=== PATIENT | female | born 1940 | race Caucasian/White ===

== ENCOUNTER 2020-12-07 17:35 | Inpatient (IN) | payer MEDICARE, OTHER ==
[~2020-12-07] VITALS: Ht 162.6 cm; Wt 68.5 kg
[2020-12-07 20:30] LABS: SARS-Cov-2 (COVID-19) PCR, MMC POSITIVE (NEGATIVE)
[2020-12-07 21:00] LABS: Magnesium, Blood 2.2 mg/dL (1.6-2.4); Phosphorus, Blood 2.7 mg/dL (2.5-4.9); Uric Acid, Blood 6.1 mg/dL (2.6-6.0)
[2020-12-07] MEDS ORDERED: ASPI325 PO (21:03)
[2020-12-07] MEDS ORDERED: LISI20 PO (21:04)
[2020-12-07] MEDS ORDERED: POTCHL20ER PO (21:04)
[2020-12-07] MEDS ORDERED: CEFD300 PO (21:08)
[2020-12-07] MEDS ORDERED: AMLO10 PO (21:09)
[2020-12-07] MEDS ORDERED: SERT100 PO (21:10)
[2020-12-07] MEDS ORDERED: ATOR20 PO (21:10)
[2020-12-07] MEDS ORDERED: HYDSUL200 PO (21:10)
[2020-12-07] MEDS ORDERED: MERIBIN5 MG PO (21:11)
[2020-12-07] MEDS ORDERED: FURO40 PO (21:12)
[2020-12-07] MEDS ORDERED: ALLO300 PO (21:12)
[2020-12-07] MEDS ORDERED: ONDA4ODT MM (21:13)
[2020-12-08 01:08] LABS: Source, Urine Clean Catch
[2020-12-08 01:11] LABS: Bilirubin, Urine Neg (Neg); Blood, Urine 1+ (Neg); Glucose Qualitative, Urine Neg (Neg); Ketones, Urine Neg (Neg); Leukocyte Esterase, Urine Neg (Neg); Nitrite, Urine Neg (Neg); Protein, Urine 2+ (Neg); Specific Gravity, Urine 1.015 (1.003-1.022); Urobilinogen, Urine NORM (Normal)
[2020-12-08 01:31] LABS: Appearance, Urine Clear (Clear); Bacteria Not Seen /hpf; Color, Urine Yellow (P-Yellow); Red Blood Cells, Urine 0-2 /hpf (0-2); Squamous Epithelial Cells Not Seen /hpf (Few); White Blood Cells, Urine Not Seen /hpf (0-5)
[2020-12-08 04:44] LABS: BASOPHILS PERCENT AUTO 0 % (0-2); EOSINOPHILS PERCENT AUTO 0 % (0-6); Hematocrit 30.9 % (33.0-51.0); IMMATURE GRAN ABSOLUTE AUTO 0.02 K/mm3 (0.00-0.10); IMMATURE GRAN PERCENT AUTO 1 % (0-1); LYMPHOCYTES ABSOLUTE AUTO 0.57 K/mm3 (0.84-5.20); LYMPHOCYTES PERCENT AUTO 19 % (21-46); MONOCYTES ABSOLUTE AUTO 0.11 K/mm3 (0.16-1.47); MONOCYTES PERCENT AUTO 4 % (4-13); Mean Corpuscular HGB 28.3 pg (26.0-34.0); Mean Corpuscular HGB Conc 32.4 g/dL (31.5-36.5); Mean Corpuscular Volume 88 fL (80-100); Mean Platelet Volume 10.8 fL (9.1-12.4); NEUTROPHILS ABSOLUTE AUTO 2.29 K/mm3 (1.96-9.15); NEUTROPHILS PERCENT AUTO 77 % (41-73); Platelet Count 133 K/mm3 (150-400); RDW Coefficient Variation 12.9 % (11.7-14.2); RDW Standard Deviation 41.4 fL (35.1-46.3); Red Blood Cell Count 3.53 M/mm3 (3.80-5.20); White Blood Cell Count 2.99 K/mm3 (4.00-11.30)
--- NOTE | 2020-12-08 04:51 | NUR ---
SUMMARY PT ARRIVED TO FLOOR IN NO DISTRESS. PT DENIES CX PAIN OR SOB. PT REPORTED FEELING TIRED AND WANTED TO SLEEP. PT VERY HARD OF HEARING. PT HAS SLEPT T/O REST OF SHIFT. PT CURRENTLY SLEEPING AND BREATHING EASY.CALL LIGHT IN REACH. BED ALARM.
[2020-12-08 05:03] LABS: Albumin, Blood 2.6 g/dL (3.4-5.0); Albumin/Globulin Ratio 0.8 (0.8-1.8); Bilirubin, Total 0.2 mg/dL (0.1-1.0); Bun/Creatinine Ratio 23.1 (12.0-20.0); Creatinine, Blood 1.34 mg/dL (0.40-1.00); Globulin, Blood 3.4 g/dL (2.2-4.0); Potassium, Blood 4.4 mmol/L (3.5-5.5)
[2020-12-08 11:49] LABS: Percent Saturation 15.7 % (15.0-50.0)
--- NOTE | 2020-12-08 18:04 | NUR ---
SHIFT SUMMARY PT AAOX3, FORGETFUL AT TIMES. VERY [place], PLEASANT AND COOPERATIVE TO CARE. VERY SOFT SPEECH NOTED. ABLE TO MAKE NEEDS KNOWN. PT REQUIRES SBA TO BSC. NO C/O PAIN OR ANY DISCOMFORT THIS SHIFT. DENIES CP OR N&V. SOB W/ EXERTION NOTED. PT ON 2.5L O2 VIA NC, SATS >92%. PT ON IV ABX ORDERED, NO ASE NOTED. BED AT LOWEST POSITION W/ ALARM ON. CALL LIGHT WITHIN REACH.
--- NOTE | 2020-12-09 04:44 | NUR ---
SUMMARY PT IS UPSET THAT HER PO LASIX HAS NOT BEEN GIVEN TO HER. PT WOULD LIKE TO TALK TO PROVIDER ABOUT ADDING HER HOME DOSE OF LASIX TO THE EM[facility]. PT HAD NO NEW ISSUES NOTED. PT HAS SLEPT T/O SHIFT. PT CURRENTLY SLEEPING AND IN NO DISTRESS. CALL LIGHT IN REACH.
[2020-12-09 08:59] LABS: Hematocrit 31.5 % (33.0-51.0); Hemoglobin 10.4 g/dL (11.5-16.0); Mean Corpuscular HGB 28.7 pg (26.0-34.0); Mean Corpuscular Volume 87 fL (80-100); Platelet Count 195 K/mm3 (150-400); RDW Coefficient Variation 13.2 % (11.7-14.2); Red Blood Cell Count 3.63 M/mm3 (3.80-5.20); White Blood Cell Count 5.36 K/mm3 (4.00-11.30)
[2020-12-09 09:19] LABS: Albumin, Blood 2.5 g/dL (3.4-5.0); Albumin/Globulin Ratio 0.8 (0.8-1.8); Bilirubin, Total 0.1 mg/dL (0.1-1.0); Bun/Creatinine Ratio 31.4 (12.0-20.0); Calcium, Blood 8.3 mg/dL (8.5-10.1); Creatinine, Blood 1.05 mg/dL (0.40-1.00); Globulin, Blood 3.3 g/dL (2.2-4.0); Magnesium, Blood 2.3 mg/dL (1.6-2.4); Potassium, Blood 4.3 mmol/L (3.5-5.5); Total Protein, Blood 5.8 g/dL (6.4-8.2)
--- NOTE | 2020-12-09 18:41 | NUR ---
SHIFT SUMMARY- PT IS A/O, PLESANT AND COOPERATIVE. SHE IS APPITITE IS FAIR. SHE WAS UP TO THE BSC THIS SHIFT. SHE SLEPT FOR MUCH OF THIS SHIFT. UPDATED THE SISTER, WITH PT PERMISSION. SHE IS [place]. HER BED IS IN THE LOW POSITION AND CALL LIGHT IS WITHIN REACH.
--- NOTE | 2020-12-10 06:06 | NUR ---
STEEPING PRESS TENDER SUMMARY NO ACUTE CHANGES THIS SHIFT. PT AAOX3. REMAINS ON 2L O2 VIA NC. NEW IV PLACED AFTER PREVIOUS IV INFILTRATED. PT DENIES PAIN, N/V. NO SOB AT REST. CALLS APPROPRIATELY FOR ASSISTANCE TO BATHROOM. VSS, WILL CONTINUE TO MONITOR.
[2020-12-10 08:47] LABS: Hematocrit 35.5 % (33.0-51.0); Hemoglobin 11.4 g/dL (11.5-16.0); Mean Corpuscular HGB 28.3 pg (26.0-34.0); Mean Corpuscular HGB Conc 32.1 g/dL (31.5-36.5); Mean Corpuscular Volume 88 fL (80-100); Mean Platelet Volume 10.4 fL (9.1-12.4); Platelet Count 210 K/mm3 (150-400); RDW Coefficient Variation 13.3 % (11.7-14.2); RDW Standard Deviation 42.9 fL (35.1-46.3); Red Blood Cell Count 4.03 M/mm3 (3.80-5.20); White Blood Cell Count 7.18 K/mm3 (4.00-11.30)
[2020-12-10 09:15] LABS: Albumin, Blood 2.6 g/dL (3.4-5.0); Albumin/Globulin Ratio 0.8 (0.8-1.8); Bilirubin, Total 0.2 mg/dL (0.1-1.0); Bun/Creatinine Ratio 29.7 (12.0-20.0); Calcium, Blood 8.5 mg/dL (8.5-10.1); Creatinine, Blood 1.01 mg/dL (0.40-1.00); Globulin, Blood 3.4 g/dL (2.2-4.0); Potassium, Blood 4.5 mmol/L (3.5-5.5)
--- NOTE | 2020-12-10 18:51 | NUR ---
PT IS A/O, PLESANT AND COOPERATIVE. SHE IS EATING AND DRINKING WELL. SHE WENT OF A CT THIS AFTERNOON. SHE IS [place]. HER BED IS IN THE LOW POSITION AND CALL LIGHT IS WITHIN REACH
--- NOTE | 2020-12-11 05:26 | NUR ---
VSS ON 1L O2. DENIES SOB, MAN[place] NOTED. DENIES CP. DENIES PAIN. UP TO BSC W/ 1 PERSON ASSIST. USING CALL LIGHT TO MAKE NEEDS KNOWN. PT [place], WRITTEN COMMUNICATION USED.
[2020-12-11 05:53] LABS: Hemoglobin 12.3 g/dL (11.5-16.0); Mean Corpuscular HGB 28.7 pg (26.0-34.0); Mean Corpuscular HGB Conc 33.2 g/dL (31.5-36.5); Mean Corpuscular Volume 86 fL (80-100); Mean Platelet Volume 10.6 fL (9.1-12.4); Platelet Count 252 K/mm3 (150-400); RDW Coefficient Variation 13.2 % (11.7-14.2); RDW Standard Deviation 41.6 fL (35.1-46.3); Red Blood Cell Count 4.28 M/mm3 (3.80-5.20); White Blood Cell Count 7.21 K/mm3 (4.00-11.30)
[2020-12-11 06:22] LABS: Bun/Creatinine Ratio 27.3 (12.0-20.0); C-REACTIVE PROTEIN, EXT RANGE 3.42 mg/dL (0.000-0.300); Calcium, Blood 8.5 mg/dL (8.5-10.1); Creatinine, Blood 0.95 mg/dL (0.40-1.00); Potassium, Blood 4.5 mmol/L (3.5-5.5); Thyroid Stimulating Hormone 1.99 uIU/mL (0.360-4.800)
[2020-12-11] MEDS ORDERED: FURO20 PO (16:13)
[2020-12-11] MEDS ORDERED: 1/2 NS 250ml250 ML (16:13)
[2020-12-11] MEDS ORDERED: Docusate Sodiu100 M1 PO (16:15)
[2020-12-11] MEDS ORDERED: DEXA6 (16:15)
--- NOTE | 2020-12-11 19:55 | NUR ---
SUMM- PT DISCHARGED 1854, CHUCK JUNIOR RECEIVED DC INSTRUCTION. PT AMBULATED SBA TO W/C AND DISCHARGED TO PRIVATE CAR. PT HAS DEMENTIA AND SPOKE LITTLE VERBALLY TODAY. ABLE TO MAKE NEEDS KNOWN VIA WRITTEN COMMUNICATION RELATED TO PT'S [place]. TOLERATED APPROX 50% OF MEALS, ENC PO FLUIDS. PT FOIDING. AMBULATES SBA. SATS 95-96% ROOM AIR AND LUNGS HAD CRACKLES IN BASES. NO SOB WITH ACTIVITY.
== END 2020-12-11 19:00 | disposition home or self-care (01) | DRG 177 ==
LOC: ER 17:35 → MEDS 19:03
PROVIDERS: Internal Medicine; Nurse Practitioner Acute Care; ADMIT Internal Medicine
PROC: 8E0ZXY6 Isolation (ICD-10-PCS; principal; 2020-12-07)
PROC: 3E0333Z Introduction of Anti-inflammatory into Peripheral Vein, Percutaneous Approach (ICD-10-PCS; 2020-12-07)
PROC: XW033E5 Introduction of Remdesivir Anti-infective into Peripheral Vein, Percutaneous Approach, New Technology Group 5 (ICD-10-PCS; 2020-12-07)
DX: U07.1 COVID-19 (principal); J12.82 Pneumonia due to coronavirus disease 2019; J96.01 Acute respiratory failure with hypoxia; N17.9 Acute kidney failure, unspecified; M10.9 Gout, unspecified; E86.0 Dehydration; M32.9 Systemic lupus erythematosus, unspecified; H93.299 Other abnormal auditory perceptions, unspecified ear; K52.9 Noninfective gastroenteritis and colitis, unspecified; I12.9 Hypertensive chronic kidney disease with stage 1 through stage 4 chronic kidney disease, or unspecified chronic kidney disease; N18.30 Chronic kidney disease, stage 3 unspecified; E78.5 Hyperlipidemia, unspecified; Z86.73 Personal history of transient ischemic attack (TIA), and cerebral infarction without residual deficits; Z98.890 Other specified postprocedural states
CPT/HCPCS: 36415; 71046; 71260; 74177; 80048; 80053; 81001; 82550; 82728; 83540; 83550; 83735; 84100; 84145; 84443; 84550; 85025; 85027; 85379; 85651; 86140; 87040; 93005; 93010; 94760; 96374; 99285-25; A9270; J0456; J0696; J1100; J1644; J1650; J7030; J7050; Q9967; U0004